=== PATIENT | female | born 1985 | race Caucasian/White ===

== ENCOUNTER 2019-05-18 10:17 | Emergency (ER) | payer OTHER, SELFPAY ==
[2019-05-18 10:23] VITALS: BP 158/84; PULSE 97; RESP 16; TEMP 37.1; O2SAT 100
--- NOTE | 2019-05-18 10:27 | ECG_ITS ---
Measurements Intervals Dwight Rate: 89 P: 36 VA: 138 QRS: 39 QRSD: 79 T: 45 QT: 356 QTc: 433 Interpretive Statements SINUS RHYTHM INCOMPLETE RIGHT BUNDLE BRANCH BLOCK BORDERLINE ECG Electronically Signed On 05-18-2019 11:40:57 [employer] by Zelalem Fu D.O.
--- NOTE | 2019-05-18 10:37 | ED.GENADULT ---
HPI - General Adult General Chief complaint: Upper Respiratory Infection Stated complaint: RAPID HEART RATE/CHEST PAIN Time Seen by Provider: 05/18/19 10:38 Source: patient and RN notes reviewed Mode of arrival: ambulatory Limitations: no limitations History of Present Illness HPI narrative: 34 year old female presents with concern for dull left-sided chest pain that started at 630 this morning. She denies shortness of breath, nausea, chest pain on exertion. Reports left anterior chest is mildly tender to touch, chest pain worsens when taking a deep breath. She denies any history of heart disease. Reports she was at work when the chest pain started and her boss suggested she be seen. Denies injury, trauma MD complaint: Chest pain Related Data Allergies Allergy/AdvReac Type Severity Reaction Status Date / Time No Known Allergies Allergy Mild Verified 07/09/07 13:17 COCONUT Allergy Mild SWELL Uncoded 07/12/08 12:15 Review of Systems Review of Systems: Narrative: CONSTITUTIONAL: Denies malaise, chills, sweats, or fever. EYES: Denies visual changes, redness, or discharge. ENT: Denies rhinorrhea, congestion, sinus pain, otalgia or sore throat. CARDIOVASCULAR: Reports left dull chest pain, palpitations. Denies edema. RESPIRATORY: Denies cough or dyspnea. GASTROINTESTINAL: Denies abdominal pain, nausea, vomiting, diarrhea SKIN: Denies bruising MUSCULOSKELETAL: Denies back pain, joint pain, or myalgia. NEUROLOGIC: Denies numbness, weakness, or headache. PSYCHIATRIC: Reports history of anxiety All systems reviewed & are unremarkable except as noted in HPI and below PMFSH Comments At time of signature, agree with nursing past medical, surgical, social and family history. There is no relevant family history pertinent to the presenting complaint Exam Narrative: Exam Narrative: GENERAL: Well-appearing, well-nourished, and in no acute distress. HEAD: Normocephalic, atraumatic. EYES: PERRLA, conjunctivae clear, and EOMI. ENT: Nares clear, turbinates pink, no rhinorrhea or epistaxis. Mucous membranes moist. TM pearly kirk with sharp light reflex bilaterally; no tragal tenderness. Oropharynx without erythema or lesions. Tonsils not enlarged and without exudate. NECK: Supple. No lymphadenopathy. No jugular venous distension. Carotids were easily palpable bilaterally. CHEST: No respiratory distress. Clear to auscultation. No bony deformities, no asymmetry. Speaks in full sentences. HEART: Regular rate and rhythm. No murmur heard. Normal peripheral pulses. SKIN: Warm, dry, no rash. NEURO: Alert and oriented x3. No focal deficits. PSYCH: Normal mood and affect Course Course Emergency Course: Discussed limited diagnostic capability at the [facility] and discussed seeking further evaluation emergency department. Through shared decision making it was decided not patient will follow-up with her primary care provider and will seek care in the emergency department should symptoms worsen or not improve. Patient is aware of diagnosis, understands and agrees to treatment plan. Anticipatory guidance given. Patient agrees to follow-up as directed and is aware of reasons to seek care at the emergency department. Portions of this record may have been created with voice recognition software Vital Signs Vital signs: Vital Signs Temperature 98.7 F 05/18/19 10:23 Pulse Rate 97 05/18/19 10:23 Respiratory Rate 16 05/18/19 10:23 Blood Pressure 158/84 H 05/18/19 10:23 Pulse Oximetry 100 05/18/19 10:23 Temperature 98.7 F 05/18/19 10:23 Pulse Rate 97 05/18/19 10:23 Respiratory Rate 16 05/18/19 10:23 Blood Pressure 158/84 H 05/18/19 10:23 Pulse Oximetry 100 05/18/19 10:23 Reviewed. Patient has been instructed to follow up with her primary care provider within the next week regarding her elevated blood pressure today. Medical Decision Making MDM Narrative Medical decision making narrative: No evidence of ACS, pericarditis,
== END 2019-05-18 10:50 | disposition home or self-care (01) ==
PROVIDERS: Emergency Provider Nurse Practitioner
DX: R07.89 Other chest pain (principal); I45.10 Unspecified right bundle-branch block
CPT/HCPCS: 93005; 99203; G0463

== ENCOUNTER 2019-06-01 13:56 | Outpatient (CLI) | payer OTHER, SELFPAY ==
--- NOTE | ~2019-06-01 | US_ITS ---
US thyroid INDICATION: Enlarged thyroid gland TECHNIQUE: Real-time sonographic images of the thyroid gland were obtained. COMPARISON: No prior studies for comparison. FINDINGS: The right thyroid lobe measures 4.7 x 1.7 x 1.6 cm. The left thyroid lobe measures 4.9 x 1 .6 x 1.5 cm. There is a hypoechoic mass with spongiform appearance, wider than tall with irregular ma rgins and no internal echogenic foci in the left lobe measuring 8 x 6 x 6 mm, likely benign. Normal v ascular flow is present. IMPRESSION: 1. Probable benign 8 mm hypoechoic mass of the left thyroid lobe. Reviewed, dictated and finalized at location B. [employer] TECHNICIAN
== END 2019-06-01 13:57 | disposition home or self-care (01) ==
LOC: ANHIMG 14:05
PROVIDERS: PCP Family Medicine; Visit Provider Family Medicine
DX: E04.9 Nontoxic goiter, unspecified (principal)
CPT/HCPCS: 76536

== ENCOUNTER 2023-04-07 09:25 | Emergency (ER) | payer OTHER, SELFPAY ==
[2023-04-07 09:36] VITALS: BP 157/96; PULSE 96; RESP 16; TEMP 37.1; O2SAT 99
--- NOTE | 2023-04-07 09:52 | ED.DENTAL ---
HPI - Dental/Oral General Chief complaint: Dental/Oral Stated complaint: Dental Pain Time Seen by Provider: 04/07/23 09:45 Source: patient Mode of arrival: ambulatory Limitations: no limitations History of Present Illness HPI Narrative: Nava is a 38-year-old female patient presenting to the clinic today with complaints of dental pain to the right 2nd molar. She reports about 3 weeks ago she chipped a tooth and is having increase in pain over the last few days. Thinks she may need an antibiotic. She does have a dentist appointment on April 18. Related Data Home Medications Medication Instructions Recorded Confirmed dextroamphetamine-amphetamine ER 20 mg PO DAILY 04/07/23 04/07/23 20 mg 24hr capsule,extend release sumatriptan 40 mg PO DAILY 04/07/23 04/07/23 Allergies Allergy/AdvReac Type Severity Reaction Status Date / Time COCONUT Allergy Mild SWELL Uncoded 04/07/23 09:40 Review of Systems Review of Systems: Pertinent positives per HPI. Patient denies any fever, chills, rash, headache, visual changes, dizziness, cough, runny nose, sore throat, shortness of breath, chest pain, palpitations, nausea, vomiting, diarrhea, constipation, abdominal pain, or any urinary issues. PMFSH Past Medical History Medical History Leucocytosis PIH ( induced hypertension) Family History Family History Grandparent Breast cancer, Onset Age: 35 Maternal Grandmother; Paternal Grandmother-50s Social History Social History Years smoked: 12 Smoking status: Current every day smoker Tobacco type: cigarettes Second hand tobacco smoke exposure: No Alcohol intake: current Drinks per week: 6 Substance use: never Substance use type: does not use Living arrangements: alone Occupation/Education: occupation Gender identity (if verbalized by the patient): Female Comments At the time of my signature, I reviewed and agree with the nursing past medical, surgical, social, and family history. There is no relevant family history pertinent to the patient complaint. Exam Narrative: General: Well-developed, well nourished, in no apparent distress Head: Normocephalic, atraumatic Eyes: Pupils equally round and reactive to light bilaterally, EOM intact, sclera and conjunctive clear, no discharge, lids normal Ears: TMs intact and clear, ear canals clear, no drainage, grossly hearing normal. Nose: Nares patent, no discharge, no inflammation, no sinus tenderness. Mouth: Oropharynx without lesions or masses, poor dentition, MMM. Dental pain to the right 2nd to posterior molar with a crack in the tooth. Neck: Supple, trachea midline, no enlargement of anterior or posterior cervical nodes, no thyroid masses or goiter palpable. Cardio: Regular rate and rhythm, s1 and s2 normal, no murmur appreciated. Resp: Clear to auscultation bilaterally anteriorly and posteriorly, no rhonchi, rales, wheezing or rubs Course Course Emergency Course: Portions of this record may have been created with voice recognition software. Level of Care: Express Care Visit Vital Signs Vital signs: Vital Signs Temperature 37.1 C 04/07/23 09:36 Pulse Rate 96 04/07/23 09:36 Respiratory Rate 16 04/07/23 09:36 Blood Pressure 157/96 H 04/07/23 09:36 Pulse Oximetry 99 04/07/23 09:36 Oxygen Delivery Room Air 04/07/23 09:36 Temperature 37.1 C 04/07/23 09:36 Pulse Rate 96 04/07/23 09:36 Respiratory Rate 16 04/07/23 09:36 Blood Pressure 157/96 H 04/07/23 09:36 Pulse Oximetry 99 04/07/23 09:36 Oxygen Delivery Room Air 04/07/23 09:36 Vital signs reviewed MDM - Dental/Oral MDM Narrative Medical decision making narrative: At the time of visit patient is resting comfortably on the exam table. Patient guzman
== END 2023-04-07 09:59 | disposition home or self-care (01) ==
PROVIDERS: Emergency Provider Nurse Practitioner Family; PCP Family Medicine
DX: K08.89 Other specified disorders of teeth and supporting structures (principal); F17.210 Nicotine dependence, cigarettes, uncomplicated; Z79.899 Other long term (current) drug therapy
CPT/HCPCS: 99213; G0463

== ENCOUNTER 2023-05-17 08:58 | Emergency (ER) | payer OTHER, SELFPAY ==
--- NOTE | 2023-05-17 09:10 | ED.URI ---
HPI - URI/Sore Throat General Chief Complaint: Upper Respiratory Infection Stated Complaint: Sinus Time Seen by Provider: 05/17/23 09:40 Source: patient and RN notes reviewed Mode of arrival: ambulatory Limitations: no limitations History of Present Illness HPI Narrative: 38-year-old female presents with concern for 4 day history of cough, nasal congestion, rhinorrhea and postnasal drainage. She has been taking Mucinex DM. She reports she started to feel better and she would like to go back to work, she needs a no. MD elicited complaint: cough Related Data Home Medications Medication Instructions Recorded Confirmed dextroamphetamine-amphetamine ER 20 mg PO DAILY 04/07/23 05/17/23 20 mg 24hr capsule,extend release sumatriptan 40 mg PO DAILY 04/07/23 05/17/23 metoprolol succinate 25 mg 25 mg PO DAILY 05/17/23 05/17/23 tablet,extended release 24 hr Allergies Allergy/AdvReac Type Severity Reaction Status Date / Time COCONUT Allergy Mild SWELL Uncoded 05/17/23 09:05 Review of Systems Review of Systems: CONSTITUTIONAL: Denies malaise, chills, sweats, or fever. EYES: Denies visual changes, redness, or discharge. ENT: Reports rhinorrhea, congestion CARDIOVASCULAR: Denies chest pain, palpitations, or edema. RESPIRATORY: Reports cough. Denies dyspnea. GASTROINTESTINAL: Denies abdominal pain, nausea, vomiting, diarrhea SKIN: Denies rash or itching. MUSCULOSKELETAL: Denies myalgia. NEUROLOGIC: Denies headache. All systems reviewed & are unremarkable except as noted in HPI and below PMFSH Past Medical History Medical History Leucocytosis PIH ( induced hypertension) Family History Family History Grandparent Breast cancer, Onset Age: 35 Maternal Grandmother; Paternal Grandmother-50s Social History Social History Years smoked: 12 Smoking status: Current every day smoker Tobacco type: cigarettes Second hand tobacco smoke exposure: No Alcohol intake: current Drinks per week: 6 Substance use: never Substance use type: does not use Living arrangements: alone Occupation/Education: occupation Gender identity (if verbalized by the patient): Female Comments At time of signature, agree with nursing past medical, surgical, social and family history. There is no relevant family history pertinent to the presenting complaint Exam Narrative: GENERAL: Well-appearing, well-nourished, and in no acute distress. HEAD: Normocephalic EYES: PERRLA, conjunctivae clear ENT: Nares clear, turbinates edematous and erythematous, clear discharge. Mucous membranes moist. TM pearly kirk with sharp light reflex bilaterally; no tragal tenderness. Oropharynx not erythematous without lesions. Tonsils not enlarged and without exudate, no drooling, no hoarseness, no trismus, uvula midline. NECK: Supple. No lymphadenopathy CHEST: Clear to auscultation, breath sounds equal. No wheezing, rhonchi, rales, or stridor. No respiratory distress, speaks in full sentences. HEART: Regular rate and rhythm. No murmur heard. SKIN: Warm, dry, no rash. NEURO: Alert and oriented x3. PSYCH: Normal mood and affect Course Course Emergency Course: Patient is aware of diagnosis, understands and agrees to treatment plan. Anticipatory guidance given. Patient agrees to follow-up as directed and is aware of reasons to seek care at the emergency department. Portions of this record may have been created with voice recognition software Level of Care: Express Care Visit Vital Signs Vital signs: Reviewed. MDM - URI/Sore Throat MDM Narrative Medical decision making narrative: Differential diagnosis considered: [place] virus, strep pharyngitis, allergic rhinitis, upper respiratory tract infection, sinusitis, rhinosinusitis, nasopharyngitis. viral phary
[2023-05-17 09:17] VITALS: BP 151/95; PULSE 100; RESP 16; TEMP 36.6; O2SAT 100
== END 2023-05-17 09:50 | disposition home or self-care (01) ==
PROVIDERS: Emergency Provider Nurse Practitioner; PCP Family Medicine
DX: J06.9 Acute upper respiratory infection, unspecified (principal); F17.210 Nicotine dependence, cigarettes, uncomplicated; Z79.899 Other long term (current) drug therapy
CPT/HCPCS: 99213; G0463